=== PATIENT | male | born 1995 | race African-American/Black ===

== ENCOUNTER 2021-03-23 16:50 | Outpatient (CLI) | payer BC, SELFPAY ==
[2021-03-23 17:08] LABS: Basophils Percent Auto 0.4 % (0.2-1.2); Eosinophils Absolute Auto 0.3 K/mm3 (0-0.3); Eosinophils Percent Auto 4.3 % (0-4.4); Hematocrit 47.2 % (42.0-52.0); Hemoglobin 16.1 g/dL (14.0-18.0); Lymphocytes Absolute Auto 2.36 K/mm3 (0.9-3.2); Lymphocytes Percent Auto 34.7 % (18.3-44.2); Mean Corpuscular HGB Conc 34.1 g/dl (32-36); Mean Corpuscular Volume 88.1 fl (80-100); Mean Platelet Volume 9.8 fl (7.4-10.4); Monocytes Absolute Auto 0.5 K/mm3 (0.1-0.6); Monocytes Percent Auto 7.9 % (2.6-8.5); Neutrophils Absolute Auto 3.6 K/mm3 (1.3-6.7); Neutrophils Percent Auto 52.7 % (45.5-73.1); Platelet Count Result 197 k/mm3 (150-375); Red Blood Count 5.36 M/mm3 (4.6-6.20); Red Cell Distribution Width 12.2 % (11.5-14.5); White Blood Count 6.8 K/mm3 (4.5-10.0)
[2021-03-23 17:20] LABS: Alanine Aminotransferase 59 U/L (4-50); Albumin Level 4.7 g/dL (3.5-5.1); Alkaline Phosphatase 87 U/L (38-126); Anion Gap 9 mmol/L (8-16); Aspartate Amino Transferase 100 U/L (17-59); Bilirubin,Total 0.9 mg/dL (0.2-1.3); Blood Urea Nitrogen 15 mg/dL (9-20); Calcium 9.5 mg/dL (8.4-10.2); Carbon Dioxide 26 mmol/L (22-30); Chloride 105 mmol/L (98-107); Cholesterol 155 mg/dL (0-200); Estimated Glomerular Filt Rate > 60; Glucose 85 mg/dL (65-110); HDL Direct 46 mg/dL; Potassium 4.1 mmol/L (3.4-5.0); Sodium 140 mmol/L (137-145); Triglycerides 43 mg/dL (<150)
[2021-03-23 17:31] LABS: LDL Cholesterol Direct 78 mg/dL
== END 2021-03-23 16:51 | disposition home or self-care (01) ==
PROVIDERS: PCP Pediatrics; Visit Provider Physician Assistant
DX: E66.01 Morbid (severe) obesity due to excess calories (principal)
CPT/HCPCS: 36415; 80053; 80061; 84443; 85025

== ENCOUNTER 2021-06-07 09:39 | Outpatient (CLI) | payer BC, SELFPAY ==
--- NOTE | ~2021-06-07 | US_ITS ---
US soft tissue chest 06/07/2021 10:35 Indication: Palpable lump epigastric region near the sternum Procedure: Real-time Limited soft tissue ultrasound of the area of palpable concern. Comparison: No prior studies for comparison. Findings: There is normal heterogeneous echotexture without focal solid or cystic mass. Impression: 1: Normal ultrasound of the epigastric soft tissues near the sternum without discrete mass. Reviewed, dictated and finalized at location A. LE APPLICATION ARCHITECT Impression: 1: Normal ultrasound of the epigastric soft tissues near the sternum without di screte mass.
== END 2021-06-07 09:40 | disposition home or self-care (01) ==
PROVIDERS: PCP Pediatrics; Visit Provider Physician Assistant
DX: L72.3 Sebaceous cyst (principal)
CPT/HCPCS: 76604

== ENCOUNTER 2022-11-23 19:03 | Emergency (ER) | payer BC, SELFPAY ==
[2022-11-23 19:14] VITALS: BP 144/66; PULSE 119; RESP 20; TEMP 38.7; O2SAT 100
[2022-11-23 19:59] LABS: Strep Group A RT-PCR DETECTED (Negative)
[2022-11-23 20:13] LABS: Influenza A QL RT-PCR Negative (Negative); Influenza B QL RT-PCR Negative (Negative); RSV RNA, RT-PCR Negative (Negative); SARS-CoV-2 RNA PCR Negative (Negative)
[2022-11-23] MEDS: ACETAMINOPHEN 500 MG TABLET 1000 MG PO (20:34)
[2022-11-23 20:36] VITALS: BP 140/70; PULSE 107; RESP 20; TEMP 38; O2SAT 100
[2022-11-23 23:17] VITALS: BP 129/71; PULSE 107; RESP 18; TEMP 36.9; O2SAT 100
[2022-11-23 23:28] VITALS: PULSE 97
[2022-11-23 23:29] VITALS: BP 125/72; PULSE 93; RESP 13; O2SAT 98
[2022-11-23 23:33] VITALS: BP 125/72; PULSE 98; RESP 25; TEMP 37.3; O2SAT 99
[2022-11-24 00:32] VITALS: BP 120/69; PULSE 88; RESP 21; O2SAT 100
--- NOTE | 2022-11-24 01:00 | ED.GENADULT ---
HPI - General Adult General Chief complaint: Unspecified Stated complaint: chills, nausea, in and out of consciousness Time Seen by Provider: 11/23/22 23:31 Source: patient Mode of arrival: ambulatory Limitations: no limitations History of Present Illness HPI narrative: This is a 27-year-old male presents to the ED with chief complaint of sore throat. Patient also reports secondary complaints of a near syncopal episode today. Patient states that he was seen at [facility] before year and had a normal head CT. Also reports some epigastric pain around the time of the near syncope. He reports additional headache and sharp chest pains that have completely resolved. He states he has had some kids sick at home as well. Denies vomiting or diarrhea. Denies shortness of breath or cough. He also has concerns of a mass in the epigastrium and chest which he has had evaluated in the past with an ultrasound and was told there is no mass present. He feels that this may be what is causing his symptoms. Related Data Allergies Allergy/AdvReac Type Severity Reaction Status Date / Time amoxicillin Allergy Unknown Verified 11/23/22 20:34 Review of Systems Review of Systems: CONSTITUTIONAL: Denies fever, chills, or sweats. EYES: Denies visual changes, redness, or discharge. ENT: See HPI CARDIOVASCULAR: Denies chest pain, palpitations, or edema. RESPIRATORY: Denies cough or dyspnea. GASTROINTESTINAL: See HPI GENITOURINARY: Denies dysuria or hematuria. SKIN: Denies rash or itching. MUSCULOSKELETAL: Denies back pain, joint pain, or myalgia. NEUROLOGIC: Denies headache, numbness, dizziness, or weakness. PSYCHIATRIC: Denies anxiety or depression. Exam Narrative: GENERAL: Well-appearing, well-nourished, and in no acute distress. HEAD: Normocephalic, atraumatic. EYES: PERRLA and EOMI. ENT: Nares clear, no rhinorrhea or epistaxis. Mucous membranes moist. Oropharynx without tonsillar hypertrophy exudate or other lesions. NECK: Supple. No adenopathy or masses. CHEST: No respiratory distress. Clear to auscultation. No wheezes rales or rhonchi HEART: Regular rate and rhythm. No murmur heard. Normal peripheral pulses. ABDOMEN: Soft, nontender, nondistended, normal active bowel sounds. EXTREMITIES: Normal range of motion. No edema. SKIN: Warm, dry, no rash. NEURO: Alert and oriented x3. No focal deficits. PSYCH: Normal mood and affect. Course Vital Signs Vital signs: Vital Signs Temperature 101.7 F H 11/23/22 19:14 Pulse Rate 119 H 11/23/22 19:14 Respiratory Rate 20 11/23/22 19:14 Blood Pressure 144/66 H 11/23/22 19:14 Pulse Oximetry 100 11/23/22 19:14 Oxygen Delivery Room Air 11/23/22 19:14 Temperature 99.1 F 11/23/22 23:33 Pulse Rate 88 11/24/22 00:32 Respiratory Rate 21 H 11/24/22 00:32 Blood Pressure 120/69 11/24/22 00:32 Pulse Oximetry 100 11/24/22 00:32 Oxygen Delivery Room Air 11/23/22 19:14 Medical Decision Making MDM Narrative Medical decision making narrative: This is a 27-year-old male presents the ED with chief complaint of near syncope and URI symptoms. Vitals initially show tachycardia and fever at 101.7. Tachycardia improved with fluids. Fever improved with Tylenol. Strep test is positive. He had a negative CT of the head at [facility] today. EKG is within normal limits here. Blood work is unremarkable. Strep test is positive. I do feel that he is probably a little dehydrated and had a near syncope with the strep throat going on. Dose of antibiotics given here. Prescription for azithromycin was given. Patient is stable for discharge home. Strict return precautions given and supportive measures discussed. Encouraged follow-up with PCP. Patient is understanding and agreeable with plan for discharge and follow-up. Vital Signs Vital Signs: Vital Signs Temperature 101.7 F H 11/23/22 19:14 Pulse Rate 119 H 11/23/22 19:14 Respiratory Rate 20 11/23/22 19:14
--- NOTE | 2022-11-24 01:01 | ECG_ITS ---
Measurements Intervals [place] Rate: 88 P: 57 NV: 163 QRS: 47 QRSD: 90 T: 41 QT: 343 QTc: 416 Interpretive Statements SINUS RHYTHM NO PREVIOUS ECG AVAILABLE FOR COMPARISON Electronically Signed On 11-24-2022 12:15:00 CDT by Orlin Gill M.D.
--- NOTE | 2022-11-24 01:30 | PC.NURSE ---
pt denied IV and IV for contrast CT but would like to have blood drawn still.
[2022-11-24 02:10] LABS: Basophils Percent Auto 0.2 % (0.2-1.2); Hematocrit 45.8 % (42.0-52.0); Hemoglobin 15.8 g/dL (14.0-18.0); Immature Granulocyte Absolute 0.02 K/mm3 (0.00-0.031); Immature Granulocyte Percent A 0.2 % (0-0.5); Lymphocytes Absolute Auto 1.17 K/mm3 (0.9-3.2); Lymphocytes Percent Auto 11.5 % (18.3-44.2); Mean Corpuscular HGB Conc 34.5 g/dl (32-36); Mean Corpuscular Volume 87.1 fl (80-100); Mean Platelet Volume 9.9 fl (7.4-10.4); Monocytes Absolute Auto 0.7 K/mm3 (0.1-0.6); Monocytes Percent Auto 6.9 % (2.6-8.5); Neutrophils Absolute Auto 8.3 K/mm3 (1.3-6.7); Neutrophils Percent Auto 81.2 % (45.5-73.1); Platelet Count Result 158 k/mm3 (150-375); Red Blood Count 5.26 M/mm3 (4.6-6.20); Red Cell Distribution Width 12.3 % (11.5-14.5); White Blood Count 10.2 K/mm3 (4.5-10.0)
[2022-11-24] MEDS: AZITHROMYCIN 250 MG TABLET 500 MG PO (02:23)
[2022-11-24 02:27] LABS: Alanine Aminotransferase 35 U/L (6-50); Albumin Level 4.8 g/dL (3.5-5.1); Alkaline Phosphatase 75 U/L (38-126); Anion Gap 11 mmol/L (8-16); Aspartate Amino Transferase 26 U/L (17-59); Bilirubin,Total 1.2 mg/dL (0.2-1.3); Blood Urea Nitrogen 14 mg/dL (9-20); Carbon Dioxide 26 mmol/L (22-30); Chloride 100 mmol/L (98-107); Estimated CRCL calculation 138 ml/min; Estimated Glomerular Filt Rate > 60; Glucose 101 mg/dL (65-110); Lipase 96 U/L (23-300); Potassium 3.9 mmol/L (3.4-5.0); Sodium 137 mmol/L (137-145)
== END 2022-11-24 02:47 | disposition home or self-care (01) ==
PROVIDERS: Preventive Medicine Aerospace Medicine; Emergency Provider Physician Assistant
DX: J02.0 Streptococcal pharyngitis (principal); Z20.822 Contact with and (suspected) exposure to COVID-19
CPT/HCPCS: 36415; 80053; 83690; 85025; 87637; 87651; 93005; 99283; A9270

== ENCOUNTER 2024-01-10 19:56 | Emergency (ER) | payer BC, SELFPAY ==
[2024-01-10 20:12] VITALS: BP 128/84; PULSE 90; RESP 16; TEMP 36.7; O2SAT 98
[2024-01-10] MEDS: TETANUS,DIPHTHERIA,AC PERTUSSIS ADULT (0.5 ML) BOOSTRIX IM (20:34)
[2024-01-10 22:32] VITALS: BP 146/93; PULSE 70; RESP 17; O2SAT 97
--- NOTE | 2024-01-10 22:49 | ED.WOUNDLAC ---
HPI - Wound/Laceration General Chief Complaint: Wound/Laceration Stated Complaint: laceration Time Seen by Provider: 01/10/24 20:17 Source: patient Mode of arrival: ambulatory Limitations: no limitations History of Present Illness HPI narrative: This is a 28-year-old male that presents to the emergency department for laceration to the left hand sustained just prior to arrival. Reports he accidentally cut himself with a box car washer. Reports bleeding and pain to the area. He is not up-to-date on tetanus. Denies decreased range of motion or numbness. Related Data Allergies Allergy/AdvReac Type Severity Reaction Status Date / Time amoxicillin Allergy Unknown Verified 01/10/24 20:34 Review of Systems Review of Systems: SKIN: Reports laceration MUSCULOSKELETAL: Denies joint pain, or myalgia. NEUROLOGIC: Denies numbness All systems reviewed & are unremarkable except as noted in HPI and below PMFSH Past Medical History Medical History (Updated 01/10/24 @ 23:03 by Nichelle Cortez PA-C) No active medical problems Social History Social History (Updated 01/10/24 @ 23:03 by Nichelle Cortez PA-C) Smoking status: Never smoker Exam Narrative: GENERAL: Well-appearing, well-nourished, and in no acute distress. HEAD: Normocephalic, atraumatic. EYES: EOMI. EXTREMITIES: Normal range of motion. No edema. Base of the left thumb palmar surface with 3 cm linear laceration into the subcutaneous tissue. Normal sensation SKIN: Warm, dry, no rash. NEURO: No focal deficits. Alert and oriented x3. PSYCH: Normal mood and affect Course Course Emergency Course: patient educated on further wound care Vital Signs Vital signs: Vital Signs Temperature 98.0 F 01/10/24 20:12 Pulse Rate 90 01/10/24 20:12 Respiratory Rate 16 01/10/24 20:12 Blood Pressure 128/84 01/10/24 20:12 Pulse Oximetry 98 01/10/24 20:12 Temperature 98.0 F 01/10/24 20:12 Pulse Rate 70 01/10/24 22:32 Respiratory Rate 17 01/10/24 22:32 Blood Pressure 146/93 H 01/10/24 22:32 Pulse Oximetry 97 01/10/24 22:32 Procedures Laceration Laceration 1: Date: 01/10/24 Time: 22:58 Site: hand Side (If applicable): left Size (cm): 3 Description: linear Depth: simple, single layer Local Anesthetic: lidocaine 1% and with epi Amount of anesthesia used (mL): 3 Pre-repair: wound explored and irrigated ====== Skin Level ====== Skin layer closed with: nylon Size (cm): 4-0 Number of sutures: 4 Technique: simple, interrupted ====== Subcutaneous Layer ====== ====== Muscle Layer ====== ====== Tendon Layer ====== MDM - Wound/Laceration MDM Narrative Medical decision making narrative: Patient presents to the emergency department after a laceration to the left hand sustained just prior to arrival. He is neurovascularly intact. Wound was irrigated and closed with sutures. He was updated on tetanus. He was educated on further wound care. He is to follow up primary provider. He was given warnings to return to the ER Differential Diagnosis Differential diagnosis: Likely laceration and avulsion of skin Critical Care Time Critical Care Time Critical Care Time: No Discharge Plan Discharge Clinical Impression: Laceration Patient Disposition: Home, Self-Care Condition: Stable Instructions: Care For Your Stitches (ED), Laceration (ED) Additional Instructions: Return to the emergency department if you experience fever, redness or swelling of your wound, abnormal drainage from your wound, or any other symptoms that are concerning to you. Apply antibiotic ointment daily. Do not soak the wound. Clean with mild soap and water daily. Take oral antibiotic as prescribed Follow-up with your primary care doctor for suture removal in 10-14 days. Prescriptions: New doxycycline hyclate 100 mg tablet
== END 2024-01-10 23:05 | disposition home or self-care (01) ==
PROVIDERS: Emergency Provider Physician Assistant
DX: S61.412A Laceration without foreign body of left hand, initial encounter (principal); Z23 Encounter for immunization; W27.8XXA Contact with other nonpowered hand tool, initial encounter
CPT/HCPCS: 12002; 90471; 90715; 99283

== ENCOUNTER 2025-03-22 09:09 | Outpatient (CLI) | payer BC, SELFPAY ==
--- OUTSIDE RECORDS SUMMARY | 2001-04-23 10:45 | XMS_ITS | Continuity of Care Document ---
Author Organization [facility] Address [address] [place] [address] Phone Care Team Providers Care Taper Operator Name Role Phone Doisy, Edward Unavailable Unavailable Advance Directives Directive Yes / No Effective Date File Name No Information Encounters Encounter Description Practice Location Reason(s) For Visit Diagnoses Date Provider Providers Copied on Encounter [facility], [id number] [place] [address] [address], [place], [place], [id number], [place] tel:[phone] [facility] No Information Sep-2 6200 1 Doisy Edward. [address] , [address], [place], [address], [place]. tel:[phone] Family History Family Member Type Diagnosis Age At Onset No Information Payers Payer name Insurance type Covered democrat ID Authoriza tion(s) No Information Social History Type Description Quantity Date Captured Comments Sex Male Smoking Status No Information Chief Complaint And Reason For Visit No Information Reason For Referral Reason For Referral No Information History Of Present Illness Encounter Date Complaint History Of Prese nt Illness No Information Functional Status Date Functional Assessmen t No Information Instructions Date Instruction Additional Infor mation No Information Assessments Type Assessment Date No Information Patient Care Teams Name Effective Dates (start - stop) Status Members No Information
--- NOTE | ~2025-03-22 | XR_ITS ---
XR shoulder LT min 2V, XR clavicle LT 03/22/2025 09:44 Indication: Left shoulder pain Procedure: 4 views left shoulder and 2 views left clavicle Comparison: No prior studies for comparison. Findings: There is anatomic alignment. No fracture, subluxation or dislocation. No soft tissue abnormality. Impression: 1: No acute bone or joint abnormality. Reviewed, dictated and finalized at location O. Impression: 1: No acute bone or joint abnormality. Impression: 1: No acute bone or joint abnormality.
--- OUTSIDE RECORDS SUMMARY | 2025-03-22 09:43 | XMS_ITS | Clinical Summary ---
Author Organization [facility] [address] [facility] Address [address] [place] [address] Care Team Providers Care Automotive Tire Tester Name Role Phone Madhu Ragsdale MD Primary Care Provider [phone] Allergies Active Allergy Reactions Criticality Noted Date Comments Amoxicillin Rash Medium 08/29/2022 Medications azithromycin (ZITHROMAX) 250 mg tablet Take 2 tabs (500 mg) by mouth today, than 1 tab (250 mg) daily for 4 days. 6 tablet 03/20/2023 Active Active Problems Problem Noted Date Diagnosed Date Obesity, morbid, BMI 40.0-49.9 03/21/2021 Assessment & Plan (03/21/2021 10:26 AM CDT): Obesity is unchanged. Discussed the patient's BMI. The BMI is above average. BMI management plan is completed. BMI Follow-up includes: nutrition counseling, exercise counseling and education provided. Encounter for medical examination to establish c are 03/21/2021 Assessment & Plan (12/02/2022 10:48 AM CDT): A(n) initial well visit to establish care has been performed today. Jose Whelan is up to date on screening tests. He is in need of None- no screening indicated at this time. He is not up to date on needed preventative vaccinations; He is in need of Tdap/Td and HPV. We discussed healthy lifestyle habits, educational material has been given. Medications reviewed, changes documented as per the medical record and discussed with patient along with risks vs benefits. Suggested Abreva (OTC) for cold sores Awaiting labs Reviewed records from ER; satisfied that he will be able to return to work duties with successful treatment course, tomorrow. Return in 1 year Assessment & Plan (03/21/2021 6:04 PM CDT): Retrieve records from previous pcp Fasting labs entered, will notify patient of results as available Sebaceous cyst 03/21/2021 Assessment & Plan (03/21/2021 6:04 PM CDT): Will evaluate further with US, will refer to surgeon for further evaluation and treatment Allergic rhinitis due to animal hair and dander 03/21/2021 Assessment & Plan (03/21/2021 6:05 PM CDT): Advised otc claritin every day Will refer to house manager for further evaluation and treatment Immunizations Immunization Administration Dates Next Due Influenza, Unspecified 07/29/2022(Deferr ed: Patient Refused),07/29/2021(Deferred: Patient Refused) Surgical History Surgery Date Site/Laterality Comments WISDOM TOOTH EXTRACTION 07/29/2022 - 07/28/2023 Family History * Patient is adopted Medical History Relation Name Comments brain damage Brother No Known Problems Father No Known Problems Maternal Grandfather No Known Problems Maternal Grandmother No Known Problems Mother No Known Problems Paternal Grandfather No Known Problems Paternal Grandmother No Known Problems Sister Relation Name Status Comments Brother Alive Father Alive Maternal Grandfather Maternal Grandmother Mother Alive Paternal Grandfather Paternal Grandmother Sister Alive Social History Tobacco Use Types Packs/Day Years Used Date Smoking Tobacco: Never Smokeless Tobacco: Never AUDIT-C Answer Date Recorded Q1: How often do you have a drink containing alc ohol? Monthly or less 11/27/2022 Q2: How many drinks containi ng alcohol do you have on a typical day when you are drinking? 1 or 2 11/27/2022 Q3: How often do you have si x or more drinks on one occasion? 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 on file Not on file Not on file Obstetrics History Last Filed Vital Signs Vital Sign Reading Time Taken Comments Blood Pressure 118/68 03/20/2023 6:55 PM CDT Pulse 87 03/20/2023 6:55 PM CDT Temperature 37.3 C (99.1 F) 03/20/2023 6:55 PM CDT Respiratory Rate 16 03/20/2023 6:55 PM CDT Oxygen Saturation 97% 03/20/2023 6:55 PM CDT Inhaled Oxygen Concentration - - Weight 133.8 kg (295 lb) 03/20/2023 6:55 PM CDT Height 182.9 cm (6') 03/20/2023 6:55 PM CDT Body Mass Index 40.01 03/20/2023 6:55 PM CDT Plan of Treatment Health Maintenance Due Date Last Done Comments Hepatitis C Screening 1996 DTaP/Tdap/Td Vaccine (1 - Tdap) 02/13/2007 Varicella Vaccines (1 of 2 - 13+ 2-dose series) 02/13/2009 Hepatitis B Screening 02/13/2014 HPV Vaccines (1 - 3-dose SCD M series) 02/13/2023 Depression Screening 11/28/2023 11/27/2022, 03/21/2021 Regular Well Visit/Exam 18-64 11/28/2023 11/27/2022 Influenza Vaccine (#1) 2025 Pneumococcal vaccine <65 Aged Out No longer eligible based on patient's age to complete this topic Insurance [employer] OOS [facility] CHOICE OOS Care Teams Automotive Tire Tester Relationship Specialty Start Date End Date Madhu Ragsdale MD [address] [address] PCP - General Family Medicine 11/27/22
[2025-03-22 09:45] LABS: Hematocrit 44.9 % (42.0-52.0); Hemoglobin 15.2 g/dL (14.0-18.0); Mean Corpuscular HGB Conc 33.9 g/dl (32-36); Mean Corpuscular Hemoglobin 29.1 pg (26-34); Mean Corpuscular Volume 85.9 fl (80-100); Platelet Count Result 196 k/mm3 (150-375); Red Blood Count 5.23 M/mm3 (4.6-6.20); White Blood Count 5.6 K/mm3 (4.5-10.0)
[2025-03-22 09:58] LABS: Hemoglobin A1C 5.3 % (<5.7)
[2025-03-22 10:06] LABS: Alanine Aminotransferase 39 U/L (6-50); Albumin Level 4.5 g/dL (3.5-5.1); Alkaline Phosphatase 85 U/L (38-126); Anion Gap 8 mmol/L (4-12); Aspartate Amino Transferase 34 U/L (17-59); Bilirubin,Total 0.6 mg/dL (0.2-1.3); Blood Urea Nitrogen 13 mg/dL (9-20); Calcium 9.2 mg/dL (8.4-10.2); Carbon Dioxide 27 mmol/L (22-30); Chloride 104 mmol/L (98-107); Cholesterol 160 mg/dL (0-200); Estimated Glomerular Filt Rate > 60; Glucose 92 mg/dL (65-110); HDL Direct 39 mg/dL; Potassium 4.0 mmol/L (3.4-5.0); Sodium 139 mmol/L (137-145); Total Protein 7.7 g/dL (6.3-8.2); Triglycerides 41 mg/dL (<150)
[2025-03-22 10:36] LABS: Thyroid Stimulating Hormone Reflex 3.570 uIU/mL (0.465-4.68)
== END 2025-03-22 09:10 | disposition home or self-care (01) ==
PROVIDERS: PCP Nurse Practitioner Family; Visit Provider Nurse Practitioner Family
DX: Z00.00 Encounter for general adult medical examination without abnormal findings (principal); Z68.41 Body mass index [BMI] 40.0-44.9, adult; G47.10 Hypersomnia, unspecified; G47.30 Sleep apnea, unspecified; M25.519 Pain in unspecified shoulder; Z13.0 Encounter for screening for diseases of the blood and blood-forming organs and certain disorders involving the immune mechanism; Z13.228 Encounter for screening for other metabolic disorders; Z13.1 Encounter for screening for diabetes mellitus; Z13.29 Encounter for screening for other suspected endocrine disorder; Z13.220 Encounter for screening for lipoid disorders; M89.8X1 Other specified disorders of bone, shoulder; M25.512 Pain in left shoulder
CPT/HCPCS: 36415; 73000; 73030; 80053; 80061; 83036; 84443; 85027